=== PATIENT | female | born 1980 | race African-American/Black ===

== ENCOUNTER 2016-05-31 15:55 | Emergency (ER) | payer BC | END 2016-05-31 16:23 | disposition home or self-care (01) | LOC: NAV ERS 15:55 | DX: J02.9 Acute pharyngitis, unspecified (principal); J01.90 Acute sinusitis, unspecified; J40 Bronchitis, not specified as acute or chronic | CPT/HCPCS: 99282 ==

== ENCOUNTER 2019-05-25 05:48 | Emergency (ER) | payer BC, OTHER ==
[2019-05-25 06:07] LABS: Bilirubin Negative (Negative); Blood, Urine Large (Negative); Clarity Cloudy (Clear); Glucose, Urine (Dipstick) Negative (Negative); Leukocyte Small (Negative); Nitrite Positive (Negative); Protein, Urine (Dipstick) 100 mg/dL (Neg-Trace); Urobilinogen 0.2 mg/dL (Less than 2)
[2019-05-25 06:10] LABS: Bacteria/HPF 2+ HPF (None Seen); Squamous Epithelial None Seen HPF (0-3); WBC/HPF Greater Than 50 HPF (0-3)
[2019-05-25] MEDS ORDERED: Sulfameth/Trimethoprim DS 800-160mg TAB ONE (06:53)
== END 2019-05-25 06:55 | disposition home or self-care (01) ==
LOC: NAV ERS 05:48
DX: N39.0 Urinary tract infection, site not specified (principal); E66.9 Obesity, unspecified; Z87.891 Personal history of nicotine dependence
CPT/HCPCS: 81003; 81015; 99283

== ENCOUNTER 2019-05-30 05:30 | Emergency (ER) | payer OTHER ==
[2019-05-30] MEDS ORDERED: Ibuprofen 800 MG TAB ONE (05:40)
[2019-05-30] MEDS ORDERED: Ondansetron ODT 4 MG TAB ONE (05:41)
[2019-05-30 06:45] LABS: ALT (SGPT) 28 U/L (8-55); AST (SGOT) 31 U/L (5-34); Albumin 3.3 g/dL (3.5-5.0); Alkaline Phosphatase 78 U/L (40-110); Anion Gap 17 mmol/L (10-20); BUN (Urea Nitrogen) 4 mg/dL (7.0-18.7); Bilirubin, Total 0.4 mg/dL (0.2-1.2); Calc. Creatinine Clearance 0 mL/min (70-130); Calcium 9.4 mg/dL (7.8-10.44); Carbon Dioxide 21 mmol/L (22-29); Chloride 98 mmol/L (98-107); Estimated GFR-MDRD 86; Globulin 4.6 g/dL (2.4-3.5); Glucose 472 mg/dL (70-105); Lipase 10 U/L (8-78); Potassium 4.4 mmol/L (3.5-5.1); Protein, Total 7.9 g/dL (6.0-8.3); Sodium 132 mmol/L (136-145)
[2019-05-30 06:47] LABS: Hemoglobin 12.1 g/dL (12.0-16.0); Mean Corpuscular HGB CONC 31.9 g/dL (32.0-36.0); Mean Corpuscular Hemoglobin 26.8 pg (27.0-31.0); Mean Corpuscular Volume 83.8 fL (78.0-98.0); Platelet Count 405 thou/uL (130-400); RBC Distribution Width 12.5 % (11.5-14.5); Red Blood Cell (RBC) Count 4.53 mill/uL (4.20-5.40); White Blood Cell (WBC) Count 12.5 thou/uL (4.8-10.8)
[2019-05-30 06:48] LABS: Band 1 % (5-11); Lymphocytes 7 % (21-51); MDiff Complete? YES; Monocytes 9 % (0-10); Neutrophil 83 % (42-75); Platelet Morphology Comment Appears Adequate
[2019-05-30 06:53] LABS: Bilirubin Negative (Negative); Blood, Urine Small (Negative); Glucose, Urine (Dipstick) 500 mg/dL (Negative); Leukocyte Trace (Negative); Nitrite Negative (Negative); Protein, Urine (Dipstick) 30 mg/dL (Neg-Trace)
[2019-05-30 06:54] LABS: Clarity Hazy (Clear); Pregnancy Test - Urine (BHCG) Negative (Negative); Pregu Control Background? CLEAR/WHITE (CLR/WHITE); Pregu Control Bar Appear? YES (CONTROL BAR)
[2019-05-30] MEDS ORDERED: Sodium Chloride 0.9% 1,000 ML ONE (06:59)
[2019-05-30 07:02] LABS: RBC/HPF 0-3 HPF (0-3)
[2019-05-30 07:03] LABS: Bacteria/HPF 1+ HPF (None Seen); Squamous Epithelial 0-3 HPF (0-3); WBC/HPF 21-50 HPF (0-3)
--- NOTE | 2019-05-30 07:40 | RAD ---
EXAM: Portable chest PROVIDED CLINICAL HISTORY: Fever COMPARISON: None FINDINGS: Evaluation is limited by patient body habitus. Cardiac and mediastinal silhouette is within normal li mits. No focal consolidation, pleural fluid or pneumothorax evident. IMPRESSION: No evidence for an acute cardiopulmonary process.
[2019-05-30] MEDS ORDERED: cefTRIAXone\\ROCEPHIN 1 GM VIAL ONE (07:52)
[2019-05-30] MEDS ORDERED: Sodium Chloride 0.9% 100 ML ONE (07:53)
[2019-05-30] MEDS ORDERED: Insulin Regular 300 UNITS/3 ML VIAL ONE (07:55)
== END 2019-05-30 08:41 | disposition home or self-care (01) ==
LOC: NAV ERS 05:30
DX: E11.65 Type 2 diabetes mellitus with hyperglycemia (principal); N39.0 Urinary tract infection, site not specified; R11.2 Nausea with vomiting, unspecified; E11.9 Type 2 diabetes mellitus without complications; Z87.891 Personal history of nicotine dependence
CPT/HCPCS: 36416; 71045; 80053; 81003; 81015; 81025; 83605; 83690; 85025; 87086; 87804; 96361; 96365; J0696; J1815; J3490; J7050; Q0162